=== PATIENT | female | born 1970 | race Caucasian/White ===

== ENCOUNTER → 2022-09-02 15:31 | Outpatient (CLI) | payer OTHER, SELFPAY ==
[2022-09-02 17:38] LABS: Alanine Aminotransferase 23 IU/L (<35); Albumin 4.2 g/dL (3.5-5.0); Albumin Globulin Ratio 1.3 (1.0-2.8); Alkaline Phosphatase 50 U/L (38-126); Aspartate Aminotransferase 21 IU/L (14-36); BUN Creatinine Ratio 18.2 (6-22); Bilirubin Total 0.7 mg/dL (0.2-1.3); Blood Urea Nitrogen 12 mg/dL (7-17); Calcium 9.7 mg/dL (8.4-10.2); Carbon Dioxide 28 mmol/L (22-32); Chloride 101 mmol/L (98-107); Cholesterol 218 mg/dL (140-199); Estimated Glomerular Filt Rate > 60 mL/min (>60); Globulin 3.2 g/dL (1.7-4.1); Glucose 93 mg/dL (70-100); HDL Cholesterol 35 mg/dL (40-60); HEMOLYSIS < 15 (0-50); LDL Cholesterol Calculated 145 mg/dL (<100); Potassium 4.3 mmol/L (3.4-5.1); Sodium 137 mmol/L (137-145); Total Protein 7.4 g/dL (6.3-8.2); Triglycerides 188 mg/dL (35-150)
[2022-09-02 18:04] LABS: TSH w/ Reflex to FT4 0.59 uIU/mL (0.47-4.68)
[2022-09-04 00:58] LABS: x Labcorp Estim. Avg Glu (eAG) 126 mg/dL (.)
== END ==
PROVIDERS: PCP Internal Medicine; Referring Provider Internal Medicine; Visit Provider Internal Medicine
DX: E78.2 Mixed hyperlipidemia (principal); I10 Essential (primary) hypertension; R73.02 Impaired glucose tolerance (oral)
CPT/HCPCS: 36415; 80053; 80061; 83036; 84443

== ENCOUNTER → 2023-08-04 12:39 | Outpatient (CLI) | payer OTHER, SELFPAY ==
--- NOTE | 2023-08-04 | DI.MG.S_ITS ---
BILATERAL DIGITAL SCREENING MAMMOGRAM 3D/2D WITH CAD: 08/04/2023 CLINICAL: Routine screening. Family history of breast cancer. Comparison is made to exam dated: 07/06/2010 mammogram - [facility]. Both breasts are heterogeneously dense, which may obscure small masses (category c / 51-75% glandular tissue). Current study was also evaluated with a Computer Aided Detection (CAD) system. There is a focal asymmetry in the right breast at 2 o'clock middle depth. No other significant masses, calcifications, or other findings are seen in either breast. IMPRESSION: INCOMPLETE: NEEDS ADDITIONAL IMAGING EVALUATION The focal asymmetry in the right breast is indeterminate. Additional views with possible ultrasound are recommended. Based on the Tyrer Cuzick model (a risk assessment model) the patient's lifetime risk is 9.7% and her 10 year risk is 2.6%. According to the ACR, ACS, and NCCN guidelines, an annual breast MRI exam along with mammogram is recommended if the patient's lifetime risk is 20% or greater. This exam was interpreted at Station ID: [id number]. NOTE: For mammograms, a report in lay terms will be sent to the patient. Approximately 15% of breast malignancies will not be visualized mammographically. In the management of a palpable breast mass, a negative mammogram must not discourage biopsy of a clinically suspicious lesion. Electronically Signed By: Cori rai/edwar:08/04/2023 15:03:10 letter sent: Additional Imaging Needed ACR BI-RADS Category 0: Incomplete 3340F
== END ==
LOC: MAMMO 12:40
PROVIDERS: PCP Internal Medicine; Referring Provider Internal Medicine; Visit Provider Internal Medicine
DX: Z12.31 Encounter for screening mammogram for malignant neoplasm of breast (principal); Z80.3 Family history of malignant neoplasm of breast; R92.333 Mammographic heterogeneous density, bilateral breasts
CPT/HCPCS: 77063; 77067

== ENCOUNTER → 2023-08-27 08:59 | Outpatient (CLI) | payer OTHER, SELFPAY ==
--- NOTE | 2023-08-27 09:00 | DI.MG.S_ITS ---
UNILATERAL RIGHT DIGITAL DIAGNOSTIC MAMMOGRAM 3D/2D WITH ADDITIONAL VIEWS: 08/27/2023 CLINICAL: Additional evaluation requested from prior study. Comparison is made to exams dated: 08/04/2023 mammogram - [facility] and 07/06/2010 mammogram - [facility]. The right breast is heterogeneously dense, which may obscure small masses (category c / 51-75% glandular tissue). With focal spot compression, and additional views, the asymmetry in the right breast at 2 o'clock in the middle depth seen on screening mammography resolves. This is probably overlapping fibroglandular tissue. No significant masses, calcifications, or other findings are seen in the breast. IMPRESSION: INCOMPLETE: NEEDS ADDITIONAL IMAGING EVALUATION Resolution of screening mammography abnormality with additional views. Ultrasound evaluation to confirm resolution is recommended and was performed immediately following this exam. Based on the Tyrer Cuzick model (a risk assessment model) the patient's lifetime risk is 9.7% and her 10 year risk is 2.6%. According to the ACR, ACS, and NCCN guidelines, an annual breast MRI exam along with mammogram is recommended if the patient's lifetime risk is 20% or greater. This exam was interpreted at Station ID: [id number]. NOTE: For mammograms, a report in lay terms will be sent to the patient. Approximately 15% of breast malignancies will not be visualized mammographically. In the management of a palpable breast mass, a negative mammogram must not discourage biopsy of a clinically suspicious lesion. Electronically Signed By: Celi gamez/:08/27/2023 09:38:40 ACR BI-RADS Category 0: Incomplete 3340F
--- NOTE | 2023-08-27 09:00 | DI.US.S_ITS ---
LIMITED ULTRASOUND OF RIGHT BREAST: 08/27/2023 CLINICAL: Patient returns today to evaluate a focal asymmetry in the right breast. Comparison is made to exams dated: 08/27/2023 mammogram, 08/04/2023 mammogram - [facility], and 07/06/2010 mammogram - [facility]. Color flow ultrasound of the right breast 1-4 o'clock region was performed. Camara scale images of the real-time examination were reviewed. There is an area of fibrocystic tissue in the right breast at 1 o'clock middle depth containing two probably simple, possible complicated cysts measuring 0.5 cm and 0.6 cm. These show good posterior acoustic enhancement. There is no focal other finding to correlate to the mammographic appearance, which resolves with spot compression. There are numerous scattered related calcifications as seen on mammogram. Color flow imaging demonstrates that there is no vascularity present. IMPRESSION: PROBABLY BENIGN The area of fibrocystic tissue in the right breast containing small cysts may correspond to the mammographic asymmetry, and is probably benign with no suspicious findings. A follow-up right mammogram and an ultrasound in 6 months is recommended to demonstrate stability of tissue appearance both on mammogram and ultrasound. Findings and recommendations were conveyed to the patient at time of exam. This exam was interpreted at Station ID: [id number]. Electronically Signed By: Celi gamez/:08/27/2023 10:10:54 letter sent: Followup Recommended Ultrasound BI-RADS: 3 Probably benign
== END ==
LOC: MAMMO 08:59
PROVIDERS: PCP Internal Medicine; Referring Provider Internal Medicine; Visit Provider Internal Medicine
DX: R92.8 Other abnormal and inconclusive findings on diagnostic imaging of breast (principal); N60.01 Solitary cyst of right breast; R92.331 Mammographic heterogeneous density, right breast
CPT/HCPCS: 76642; 77065; G0279

== ENCOUNTER → 2023-09-23 11:07 | Outpatient (CLI) | payer OTHER, SELFPAY ==
[2023-09-23 12:11] LABS: Hemoglobin A1C% w Est Avg Glu 7.1 % (4.0-6.0)
[2023-09-23 12:39] LABS: Alanine Aminotransferase 23 IU/L (<35); Albumin 4.3 g/dL (3.5-5.0); Albumin Globulin Ratio 1.3 (1.0-2.8); Alkaline Phosphatase 62 U/L (38-126); Aspartate Aminotransferase 25 IU/L (14-36); Bilirubin Total 0.9 mg/dL (0.2-1.3); Blood Urea Nitrogen 12 mg/dL (7-17); Calcium 8.8 mg/dL (8.4-10.2); Carbon Dioxide 27 mmol/L (22-32); Chloride 103 mmol/L (98-107); Cholesterol 208 mg/dL (140-199); Estimated Glomerular Filt Rate > 60 mL/min (>60); Globulin 3.3 g/dL (1.7-4.1); Glucose 134 mg/dL (70-100); HDL Cholesterol 31 mg/dL (40-60); HEMOLYSIS < 15 (0-50); LDL Cholesterol Calculated 147 mg/dL (<100); Potassium 3.7 mmol/L (3.4-5.1); Sodium 137 mmol/L (137-145); Total Protein 7.6 g/dL (6.3-8.2); Triglycerides 151 mg/dL (35-150)
== END ==
PROVIDERS: PCP Internal Medicine; Referring Provider Internal Medicine; Visit Provider Internal Medicine
DX: R73.02 Impaired glucose tolerance (oral) (principal); I10 Essential (primary) hypertension
CPT/HCPCS: 36415; 80053; 80061; 83036

== ENCOUNTER → 2023-10-08 10:35 | Outpatient (CLI) | payer OTHER, SELFPAY ==
[2023-10-09 13:24] LABS: Fecal Immunochemical Test Negative (Negative)
== END ==
LOC: LAB 10:36
PROVIDERS: PCP Internal Medicine; Referring Provider Internal Medicine; Visit Provider Internal Medicine
DX: Z12.11 Encounter for screening for malignant neoplasm of colon (principal)
CPT/HCPCS: 82274

== ENCOUNTER → 2023-11-18 08:52 | Outpatient (CLI) | payer OTHER, SELFPAY ==
--- NOTE | 2023-11-18 09:02 | DIAB.MNT ---
Initial Diabetes Medical Nutrition Therapy Assessment Name: Ronaldo Ambrosio Date: 11/18/23 Time: 10-11a Dx: Type II Diabetes Provider: Crispin Preferred Learning Style: Hands on/doing Ronaldo presents for initial Dm visit today. New diagnosis with HgA1c of 7.1%. FH of DM with mother. Reports social anxiety and would like to stick with 1:1 visits vs classes. If feeling dizzy may drink juice or gatorade or have piece of cheese. States her goal is to not have DM. Today she wants information, wants to know how to control it, has anxiety about this. Her sister is a dietitian in [place].. After review of diet recall, most of CHO come from sugar beverages. Reports diet soda causes migraines. She uses soda as a source of caffeine. Also home makes sweet tea with about 20-40g CHO per serving. Stage of change contemplation for beverage choices. Frequent eating out and processed frozen foods resulting in higher Na intake. Eats dinner at 830p with before he goes to work. Daughter lives with them and cooks. Diet Recall: 9a: frozen frittatas x 2 (7g CHO 670mg Na) + 12oz coke (40g CHO--- total 47g CHO) 2p: taco time beef salad with ranch and small coke (44-60g CHO) sn: nothing or cheese or chips or nuts 830p: black whitt burger britney x2 OR chicken britney with 20-40oz sweetened tea (64-84g CHO) Nohemy: water x 80oz, sweet tea 20-40oz, soda 24oz Anthropometrics: Ht: 66 Wt: 226# 10/2023 at PCP office Physical Activity: No intentional exercise program. Self-Monitoring Blood Glucose: No supplies. Open to checking BG. RD messaged PCP workgroup. Diabetes Medications: None Pertinent Labs: HgA1c: 6.0% 08/2022 7.1% 08/2023 Past Medical History: (Last Updated 09/30/23 @ 10:06 by Orestes Roa MD) Depression (~2020) Diabetes type 2, controlled (~08/2023) A1c 7.1 08/2023 Essential hypertension History of kidney stones Impaired glucose tolerance A1c 6.27 July 2021 Ovarian cyst (~1993) Nutrition Rx: Carbohydrates: Meal:30-45g Snack:15-30g Na: 2000-2300mg/day Nutrition Diagnosis: - Excessive Na intake r/t nutrition knowledge deficit and convenience aeb diet recall of eating out and processed food options - Undesirable food choices r/t stage of change contemplation aeb reported sugar beverage options - Physical inactivity r/t stage of change contemplation aeb reported limited exercise Intervention: This participant was very receptive. Provided appropriate educational handouts. Discussed the following topics: Completed intake assessment. Discussed barriers to care. Pathophysiology of T2DM HgA1c, its correlation to blood glucose numbers, and rationale for goal Importance of self-monitoring, how often, and when to check. Suggested checking at different times to evaluate meals Plate Method, impact of macronutrients on blood sugar, meal timing, carbohydrate counting, pairing macronutrients and spreading out carbohydrates for better blood glucose management Recommended servings for carbohydrates at meals and snacks Heart health nutrition Brainstormed appropriate meal plan based on food preferences Role of physical activity a Discussed low risk for lows given state of DM and DM medications, no need for juice treatment Reviewed impact of sugar beverages on BG Created SMART goals for patient self-care and success. 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
== END ==
PROVIDERS: PCP Internal Medicine; Referring Provider Internal Medicine
DX: E11.9 Type 2 diabetes mellitus without complications (principal); Z71.3 Dietary counseling and surveillance
CPT/HCPCS: 97802

== ENCOUNTER → 2023-12-17 10:01 | Outpatient (CLI) | payer OTHER, SELFPAY ==
--- NOTE | 2024-01-13 16:59 | DIAB.MNTFU ---
Follow-up Diabetes Medical Nutrition Therapy Assessment Name: Ronaldo Ambrosio Date: 12/17/23 Time: 1020-11a Dx: Type II Diabetes Ronaldo presents for Dm visit today. Has reduced soda intake to one per day in the morning. Does not like sf options. Drinking more water at meals. Also, reduced sugar in homemade tea. This results in 13g CHO per day from tea. Looking for some new recipes with veggies. Has questions about carb content in foods, including candy. Has been looking at online menus for carb content in fast food options. Diet Recall: Lunch: taco salad from fast food place Dinner: smaller portions lately, ie veggie burgers and veggies water: 80oz Anthropometrics: Ht: 66 Wt: 226# 10/2023 at PCP office Physical Activity: Walking more after dinner with dog for 15 mins. Use to go to [employer], but limited now due to cost. Walking to get lunch at fast food place. Interested in walking more. Self-Monitoring Blood Glucose: Started checking BG. FBG recently elevated. Some postprandial readings ranging from 110-186mg/dl, one reading of 256 directly after a meal. Would likely benefit from DM medication. Date Pre Post Pre Post Pre Post 12/08 177 130 12/10 110 12/11 144 12/12 173 121 12/14 256 Right after meal 12/15 186 12/16 158 Diabetes Medications: None Pertinent Labs: HgA1c: 6.0% 08/2022 7.1% 08/2023 Past Medical History: (Last Updated 09/30/23 @ 10:06 by Orestes Roa MD) Depression (~2020) Diabetes type 2, controlled (~08/2023) A1c 7.1 08/2023 Essential hypertension History of kidney stones Impaired glucose tolerance A1c 6.27 July 2021 Ovarian cyst (~1993) Nutrition Rx: Carbohydrates: Meal:30-45g Snack:15-30g Na: 2000-2300mg/day Nutrition Diagnosis: - Excessive Na intake r/t nutrition knowledge deficit and convenience aeb diet recall of eating out and processed food options- in progress - Undesirable food choices r/t stage of change contemplation aeb reported sugar beverage options - improved - Physical inactivity r/t stage of change contemplation aeb reported limited exercise - improved Intervention: This participant was very receptive. Provided appropriate educational handouts. Discussed the following topics: Impact of sugar beverages on BG Carb recommendations and reading food labels for net carbs Recipe options with more veggies BG results and goals Created SMART goals for patient self-care and success. 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
== END ==
PROVIDERS: PCP Internal Medicine; Referring Provider Internal Medicine
DX: E11.9 Type 2 diabetes mellitus without complications (principal); Z71.3 Dietary counseling and surveillance
CPT/HCPCS: 97803

== ENCOUNTER → 2024-01-14 09:46 | Outpatient (CLI) | payer OTHER, SELFPAY ==
--- NOTE | 2024-01-14 10:03 | DIAB.MNTFU ---
Follow-up Diabetes Medical Nutrition Therapy Assessment Name: Ronaldo Ambrosio Date: 01/14/24 Time: 1539-9050a Dx: Type II Diabetes Ronaldo presents for Dm visit today. Brought a [employer] box lunch box. Reports she has been using this instead of eating out at the [facility]. Filling the box with mostly protein and veggies and minimal carbohydrates. Brought a fast food menu to review best choices while at work for lunch. Has questions regarding BM regularity. Reports BM 2x per week and often hard, constipation. Likely having constipation r/t reduced fiber with lower carb diet. Cut out whole grains and fruit. Has questions about how much rice and oatmeal she can eat. Also has dried papaya and wondering how much she can have. Added macronutrient paired snack in the evening. Eye doctor next week. Dental up to date. PCP visit in April. Anthropometrics: Ht: 66 Wt: 226# 10/2023 at PCP office Physical Activity: Walking more after dinner with dog for 30 mins. Self-Monitoring Blood Glucose: FBG 140s and later in the day BG often 140-160mg/dl. FBG have improved per report. Last visit FBG ranging in the 150-170s mg/dl. Diabetes Medications: None Pertinent Labs: HgA1c: 6.0% 08/2022 7.1% 08/2023 Past Medical History: (Last Updated 09/30/23 @ 10:06 by Orestes Roa MD) Depression (~2020) Diabetes type 2, controlled (~08/2023) A1c 7.1 08/2023 Essential hypertension History of kidney stones Impaired glucose tolerance A1c 6.27 July 2021 Ovarian cyst (~1993) Nutrition Rx: Carbohydrates: Meal:30-45g Snack:15-30g Na: 2000-2300mg/day Nutrition Diagnosis: - Excessive Na intake r/t nutrition knowledge deficit and convenience aeb diet recall of eating out and processed food options- in progress - Predicted inadequate fiber intake r/t limiting whole grains and fruit to reduce CHO intake aeb pt report and constipation- new - Nutrition and food related knowledge deficit r/t new DM diagnosis and needing more info on carb counting/label reading aeb pt report - new Intervention: This participant was very receptive. Provided appropriate educational handouts. Discussed the following topics: Blood sugar trends review Physical activity progress and plan Yves box portions DM complication risk reduction appts: eye and dental care Ways to add fiber into diet Constipation MNT: fiber, fluids, activity Carb portion recommendations and pairing Label reading Created SMART goals for patient self-care and success. Goals: Increase walking time- met Start trail walks - in progress Check FBG and a few 1-2 hour pc readings- in progress Try Hs snack with protein- met Try 1 pkt oats with added protein- new Add fruit with pro snack at 5p- new Bring nutrition info for papaya next visit- new Follow-up: KIMBERLEE BEDOYA follow-up in 4 weeks Perri Scott RDN, [facility] Certified Diabetes Care and Government Sales Manager P: [phone] Thank you for this referral
== END ==
LOC: DIET 09:46
PROVIDERS: PCP Internal Medicine; Referring Provider Internal Medicine
DX: E11.9 Type 2 diabetes mellitus without complications (principal); Z71.3 Dietary counseling and surveillance
CPT/HCPCS: 97803

== ENCOUNTER → 2024-02-18 09:47 | Outpatient (CLI) | payer OTHER, SELFPAY ==
--- NOTE | 2024-03-12 09:29 | DIAB.MNTFU ---
Follow-up Diabetes Medical Nutrition Therapy Assessment Name: Ronaldo Ambrosio Date: 02/18/24 Time: 101030a Dx: Type II Diabetes Ronaldo presents for Dm visit today. Recent return from [place]ilting retreat. Reports focusing mostly on salads and sausage egg bowls without CHO. Recently bought fruit cups in juice for a snack. Overall, choosing low CHO options, ie low CHO tortillas. Occasionally will have <1oz dried papaya when craving something sweet, <24g per serving. Eye doctor completed without concern. Dental up to date and due in March PCP visit in April. Anthropometrics: Ht: 66 Wt: 226# 10/2023 at PCP office Physical Activity: Walking more after dinner with dog for 30 mins. Trying to get her small dog to walk more than 30 minutes. Self-Monitoring Blood Glucose: FBG 140-150 and later in the day BG often 140-150mg/dl. FBG have improved since our first visit, however have been about the same since last visit. Reports an occasional 200mg/dl after low CHO breakfast sandwich and sweetened soda. Quincy dizzy and coworker encouraged her to stay seated. Diabetes Medications: None Pertinent Labs: HgA1c: 6.0% 08/2022 7.1% 08/2023 Past Medical History: (Last Updated 09/30/23 @ 10:06 by Orestes Roa MD) Depression (~2020) Diabetes type 2, controlled (~08/2023) A1c 7.1 08/2023 Essential hypertension History of kidney stones Impaired glucose tolerance A1c 6.27 July 2021 Ovarian cyst (~1993) Nutrition Rx: Carbohydrates: Meal:30-45g Snack:15-30g Na: 2000-2300mg/day Nutrition Diagnosis: - Excessive Na intake r/t nutrition knowledge deficit and convenience aeb diet recall of eating out and processed food options- in progress - Predicted inadequate fiber intake r/t limiting whole grains and fruit to reduce CHO intake aeb pt report and constipation- improved - Nutrition and food related knowledge deficit r/t new DM diagnosis and needing more info on carb counting/label reading aeb pt report - improved -Excessive CHO intake r/t 1 sweetened beverage per day aeb pt report of soda and BG of >200mgd/l- new Intervention: This participant was very receptive. Provided appropriate educational handouts. Discussed the following topics: Blood sugar trends review Physical activity progress and plan Impact of sugared beverages on BG what to do if BG is elevated: hydrate and move your body Review of risk reduction recommendations for avoiding complications Created SMART goals for patient self-care and success. Goals: Try 1 pkt oats with added protein- met Add fruit with pro snack at 5p- met Bring nutrition info for papaya next visit- not met Check for smaller soda can- new If experiencing high BG, drink water and move- new Follow-up: KIMBERLEE BEDOYA follow-up in 3-4 weeks Perri Scott RDN, [facility] Certified Diabetes Care and Rad Tech P: [phone] Thank you for this referral
== END ==
PROVIDERS: PCP Internal Medicine; Referring Provider Internal Medicine
DX: E11.9 Type 2 diabetes mellitus without complications (principal); Z71.3 Dietary counseling and surveillance
CPT/HCPCS: 97803

== ENCOUNTER → 2024-03-17 08:49 | Outpatient (CLI) | payer OTHER, SELFPAY ==
--- NOTE | 2024-03-17 09:48 | DIAB.MNTFU ---
Follow-up Diabetes Medical Nutrition Therapy Assessment Name: Ronaldo Ambrosio Date: 03/17/24 Time: 9-930a Dx: Type II Diabetes Ronaldo presents for Dm visit today. Recent return from [place] trip for a friend's wedding anniversary. States she has had a horrible months due to eating indiscretions while on this trip, ie increased sandwiches, saturated fats. Seems to be pretty hard on herself for short duration of celebratory trip/eating. Found smaller cans of soda she was willing to try out. still having 12 oz cans of regular soda at home, but switching to q other day vs daily. Drinking these with low CHO meals. Endorses increased water intake. No recent dizzy spells with higher CHO intake. Did have some tingling, indigestion, heartburn one night, but BP and BG was WNL at that time per report. Has questions about eating out. Has questions about potato portions. Eye doctor completed without concern. Dental up to date and due in March PCP visit in April. Anthropometrics: Ht: 66 Wt: 226# 10/2023 at PCP office Physical Activity: Walking after dinner with dog for 30 mins. Trying to get her small dog to walk more than 30 minutes. Cold weather may be a barrier eventually, but currently able to continue walking. Reports concerns with small dog willingness to walk in snow or heavy rain. Self-Monitoring Blood Glucose: FBG 140-150 last visit, reports improved BG closer to 140mg/dl. Diabetes Medications: None Pertinent Labs: HgA1c: 6.0% 08/2022 7.1% 08/2023 Past Medical History: (Last Updated 09/30/23 @ 10:06 by Orestes Roa MD) Depression (~2020) Diabetes type 2, controlled (~08/2023) A1c 7.1 08/2023 Essential hypertension History of kidney stones Impaired glucose tolerance A1c 6.27 July 2021 Ovarian cyst (~1993) Nutrition Rx: Carbohydrates: Meal:30-45g Snack:15-30g Na: 2000-2300mg/day Nutrition Diagnosis: - Nutrition and food related knowledge deficit r/t new DM diagnosis and needing more info on carb counting/label reading aeb pt report - improved/in progress -Excessive CHO intake r/t 1 sweetened beverage per day aeb pt report of soda and BG of >200mgd/l- improved Intervention: This participant was very receptive. Provided appropriate educational handouts. Discussed the following topics: Blood sugar trends review Physical activity progress and plan Reducing sugar beverage intake Eating out strategies and portions Potato portions and carb content Practicing moderation and george when getting off track with nutrition goals Created SMART goals for patient self-care and success. Goals: Check for smaller soda can- met If experiencing high BG, drink water and move- continue Practice george with occasional pitfalls of nutrition changes- new Continue walking - new Continue working toward 8oz sodas q other day- new Estimate how much rice is in the [place]- new Follow-up: KIMBERLEE BEDOYA follow-up in 4 weeks. Would like to continue to meet monthly at this time. Plans to see Dentist next month, and PCP in early April. Perri Scott RDN, [facility] Certified Diabetes Care and Crook Operator P: [phone] Thank you for this referral
== END ==
PROVIDERS: PCP Internal Medicine; Referring Provider Internal Medicine
DX: E11.9 Type 2 diabetes mellitus without complications (principal); Z71.3 Dietary counseling and surveillance
CPT/HCPCS: 97803

== ENCOUNTER → 2024-04-14 09:42 | Outpatient (CLI) | payer OTHER, SELFPAY ==
--- NOTE | 2024-04-14 10:04 | DIAB.MNTFU ---
Follow-up Diabetes Medical Nutrition Therapy Assessment Name: Ronaldo Ambrosio Date: 04/14/24 Time: 100a Dx: Type II Diabetes Ronaldo presents for Dm visit today. Trying plant based pastas about 30g CHO per serving with protein. Practicing george with any nutrition pitfalls. Though states she is doing very well with eating in general. States she has one cheat day that includes jelly donut for breakfast. Otherwise, portioning out sweets. Recent cold, but she is feeling better now. Reports a cheat day q Friday: donut, two sodas, and chips. Meals the same. Some concern for CHO intake on this day, especially refined CHO. Eye doctor completed without concern. Dental was due in March, r/s due to illness PCP visit in April. Anthropometrics: Ht: 66 Wt: 226# 10/2023 at PCP office Physical Activity: Walking after dinner with dog for 30 mins. Trying to get her small dog to walk more than 30 minutes. Cold weather becoming more of a barrier. Use to have a [employer] membership, unclear if still active. Self-Monitoring Blood Glucose: FBG closer to 140mg/dl. Diabetes Medications: None Pertinent Labs: HgA1c: 6.0% 08/2022 7.1% 08/2023 Past Medical History: (Last Updated 09/30/23 @ 10:06 by Orestes Roa MD) Depression (~2020) Diabetes type 2, controlled (~08/2023) A1c 7.1 08/2023 Essential hypertension History of kidney stones Impaired glucose tolerance A1c 6.27 July 2021 Ovarian cyst (~1993) Nutrition Rx: Carbohydrates: Meal:30-45g Snack:15-30g Na: 2000-2300mg/day Nutrition Diagnosis: - Nutrition and food related knowledge deficit r/t new DM diagnosis and needing more info on carb counting/label reading aeb pt report - improved/in progress -Excessive CHO intake r/t 2 sweetened beverage on Sundays along with other higher CHO options aeb pt report - new Intervention: This participant was very receptive. Provided appropriate educational handouts. Discussed the following topics: Physical activity plan Reducing sugar beverage intake Cheat day moderation Created SMART goals for patient self-care and success. Goals: Practice george with occasional pitfalls of nutrition changes- met Continue walking - met Continue working toward 8oz sodas q other day- met Estimate how much rice is in the [place]- met Keep soda to one on cheat day- new Check into [place] membership status- new Follow-up: KIMBERLEE BEDOYA follow-up in 4-6 weeks. She would like to continue to meet monthly at this time. Plans to r/s dentist and PCP in early April. Perri Scott RDN, [facility] Certified Diabetes Care and Test And Turn Up Technician P: [phone] Thank you for this referral
== END ==
PROVIDERS: PCP Internal Medicine; Referring Provider Internal Medicine
DX: E11.9 Type 2 diabetes mellitus without complications (principal); Z71.3 Dietary counseling and surveillance
CPT/HCPCS: 97803

== ENCOUNTER → 2024-04-20 11:05 | Outpatient (CLI) | payer OTHER, SELFPAY ==
[2024-04-20 13:07] LABS: Alanine Aminotransferase 29 IU/L (<35); Albumin 4.1 g/dL (3.5-5.0); Albumin Globulin Ratio 1.3 (1.0-2.8); Alkaline Phosphatase 69 U/L (38-126); Aspartate Aminotransferase 30 IU/L (14-36); BUN Creatinine Ratio 16.4 (6-22); Bilirubin Total 0.8 mg/dL (0.2-1.3); Blood Urea Nitrogen 11 mg/dL (7-17); Calcium 9.4 mg/dL (8.4-10.2); Carbon Dioxide 27 mmol/L (22-32); Chloride 103 mmol/L (98-107); Cholesterol 235 mg/dL (140-199); Estimated Glomerular Filt Rate > 60 mL/min (>60); Globulin 3.1 g/dL (1.7-4.1); Glucose 134 mg/dL (70-100); HDL Cholesterol 36 mg/dL (40-60); HEMOLYSIS < 15 (0-50); Hemoglobin A1C% w Est Avg Glu 6.8 % (4.0-6.0); LDL Cholesterol Calculated 176 mg/dL (<100); Potassium 4.3 mmol/L (3.4-5.1); Sodium 138 mmol/L (137-145); Total Protein 7.2 g/dL (6.3-8.2); Triglycerides 116 mg/dL (35-150)
[2024-04-20 14:14] LABS: Creatinine Urine Random 100.25 mg/dL
[2024-04-20 14:22] LABS: Microalbumin Urine Random 1.4 mg/dL (0-1.6)
== END ==
PROVIDERS: PCP Internal Medicine; Referring Provider Internal Medicine; Visit Provider Internal Medicine
DX: E11.9 Type 2 diabetes mellitus without complications (principal); I10 Essential (primary) hypertension
CPT/HCPCS: 36415; 80053; 80061; 82043; 82570; 83036

== ENCOUNTER → 2024-05-12 09:46 | Outpatient (CLI) | payer OTHER, SELFPAY ==
--- NOTE | 2024-05-12 | DI.MG.S_ITS ---
UNILATERAL RIGHT DIGITAL DIAGNOSTIC MAMMOGRAM 3D/2D SHORT-TERM FOLLOW-UP: 05/12/2024 CLINICAL: Patient returns for a 6 month follow up of the right breast. Comparison is made to exams dated: 08/27/2023 mammogram, 08/04/2023 mammogram - [facility], and 07/06/2010 mammogram - [facility]. The breasts are heterogeneously dense, which may obscure small masses (category c / 51-75% glandular tissue). The previously described asymmetry in the inner breast at middle depth is less prominent since prior mammogram. No other significant masses, calcifications, or other findings are seen in the breast. IMPRESSION: INCOMPLETE: NEED ADDITIONAL IMAGING EVALUATION Right breast asymmetry in the middle inner region, less prominent since August 2023. An ultrasound is recommended for further evaluation and is scheduled to immediately follow this examination. Based on the Tyrer Cuzick model (a risk assessment model) the patient's lifetime risk is 9.6% and her 10 year risk is 2.8%. According to the ACR, ACS, and NCCN guidelines, an annual breast MRI exam along with mammogram is recommended if the patient's lifetime risk is 20% or greater. This exam was interpreted at Station ID: [id number]. NOTE: For mammograms, a report in lay terms will be sent to the patient. Approximately 15% of breast malignancies will not be visualized mammographically. In the management of a palpable breast mass, a negative mammogram must not discourage biopsy of a clinically suspicious lesion. Electronically Signed By: Rayna Wells M.D., Ph.D. eb/:05/13/2024 02:41:04 letter sent: Additional Imaging Needed ACR BI-RADS Category 0: Incomplete: Need Additional Imaging Evaluation
--- NOTE | 2024-05-12 09:47 | DI.US.S_ITS ---
LIMITED ULTRASOUND OF RIGHT BREAST: 05/12/2024 CLINICAL: 6 month follow-up of cysts. Comparison is made to exams dated: 05/12/2024 mammogram, 08/27/2023 ultrasound, 08/27/2023 mammogram, 08/04/2023 mammogram - [facility], and 07/06/2010 mammogram - [facility]. Color flow ultrasound of the right breast 1 o'clock region was performed. Camara scale images of the real-time examination were reviewed. There is a benign 0.5 cm cyst in the right breast at 1 o'clock, 5 cm from the nipple. This abnormality is decreased in size and correlates with mammography findings. IMPRESSION: BENIGN Right breast 0.5 cm cyst at 1 o'clock is benign. No mammographic or sonographic evidence of malignancy. Return to annual mammogram screening schedule is recommended, due in July 2024. Findings and recommendations were conveyed to the patient during today's evaluation. This exam was interpreted at Station ID: [id number]. Electronically Signed By: Rayna Wells M.D., Ph.D. eb/:05/13/2024 02:44:08 letter sent: Normal Exam ACR BI-RADS Category 2: Benign
== END ==
PROVIDERS: PCP Internal Medicine; Referring Provider Internal Medicine; Visit Provider Internal Medicine
DX: R92.8 Other abnormal and inconclusive findings on diagnostic imaging of breast (principal); R92.333 Mammographic heterogeneous density, bilateral breasts; N60.01 Solitary cyst of right breast
CPT/HCPCS: 76642; 77065; G0279

== ENCOUNTER → 2024-05-12 12:42 | Outpatient (CLI) | payer OTHER, SELFPAY ==
--- NOTE | 2024-06-11 13:33 | DIAB.MNTFU ---
Follow-up Diabetes Medical Nutrition Therapy Assessment Name: Ronaldo Ambrosio Date: 05/12/24 Time: 1-130p Dx: Type II Diabetes Ronaldo presents for Dm visit today. Great hgA1c in Nov under 7%, though some elevated LDL. Some h/o elevated cholesterol, and has increased from 147 to 176 for LDL. TG down from 151 to 116. Prescribed a statin as a result of elevated LDL. States she will try this for a few weeks, however feels her recent SE include irritability, emotional. Wants to know what she can do with her diet to reduce LDL. Endorses upset GI with gluten. Takes fiber supplement Questions regarding rosemarieie she buys with protein, 50g CHO, 30g PRO. Anthropometrics: Ht: 66 Wt: 226# 10/2023 at PCP office Physical Activity: Walking after dinner with dog for 30 mins. Trying to get her small dog to walk more than 30 minutes. Cold weather becoming more of a barrier. Use to have a [employer] membership. Interested in a bike. Will discuss more next visit Self-Monitoring Blood Glucose: Not discussed today. Diabetes Medications: None Pertinent Labs: HgA1c: 6.0% 08/2022 7.1% 08/2023 6.8% 03/2024 Past Medical History: (Last Updated 09/30/23 @ 10:06 by Orestes Roa MD) Depression (~2020) Diabetes type 2, controlled (~08/2023) A1c 7.1 08/2023 Essential hypertension History of kidney stones Impaired glucose tolerance A1c 6.27 July 2021 Ovarian cyst (~1993) Nutrition Rx: Carbohydrates: Meal:30-45g Snack:15-30g Na: 2000-2300mg/day Nutrition Diagnosis: - Nutrition and food related knowledge deficit r/t new DM diagnosis and needing more info on carb counting/label reading aeb pt report - improved/in progress -Excessive CHO intake r/t 2 sweetened beverage on Sundays along with other higher CHO options aeb pt report - improved - Nutrition and food related knowledge deficit r/t needing more info on LDL nutrition recs aeb pt report - new Intervention: This participant was very receptive. Provided appropriate educational handouts. Discussed the following topics: Cholesterol MNT: fiber, fats Exercise impact on cholesterol HLD etiology diet and liver's role Industry 3 sources Recent labs review Created SMART goals for patient self-care and success. Goals: Keep soda to one on cheat day- met Check into [employer] membership status- in progress Fish 2x per week- new Try dave seed pudding- new Consider next step in physical activity - new Follow-up: KIMBERLEE BEDOYA follow-up in 4-6 weeks Perri Scott RDN, AURELIANO Certified Diabetes Care and Marketing Writer P: [phone] Thank you for this referral
== END ==
PROVIDERS: PCP Internal Medicine; Referring Provider Internal Medicine
DX: E11.9 Type 2 diabetes mellitus without complications (principal); Z71.3 Dietary counseling and surveillance
CPT/HCPCS: 97803

== ENCOUNTER → 2024-06-16 09:43 | Outpatient (CLI) | payer OTHER, SELFPAY ==
--- NOTE | 2024-07-08 08:08 | DIAB.MNTFU ---
Follow-up Diabetes Medical Nutrition Therapy Assessment Name: Ronaldo Ambrosio Date: 06/16/24 Time: [id number] Dx: Type II Diabetes Ronaldo presents for Dm visit today. Trying to increase fiber intake. Did not like dave pudding, but is adding it to her yogurt. Has questions about nutrition supplements. Taking statin as rx'd without any SE. Eating Fish 2x per week. Continues to restrict soda intake, though does have small soda sometimes. Reports stress management difficulties. States she usually sews to help with stress, but is unable to do this recently due to living room overcrowded with sewing materials. Would like to turn her daughter's bedroom into a sewing room; however this is emotional as daughter moved to [place] and does not talk to her. Also, having stress with caring for her aging mother. Tearful today. Anthropometrics: Ht: 66 Wt: 226# 10/2023 at PCP office Physical Activity: None lately, looked in to bikes. Self-Monitoring Blood Glucose: Not discussed today. Diabetes Medications: None Pertinent Labs: HgA1c: 6.0% 08/2022 7.1% 08/2023 6.8% 03/2024 Past Medical History: (Last Updated 09/30/23 @ 10:06 by Orestes Roa MD) Depression (~2020) Diabetes type 2, controlled (~08/2023) A1c 7.1 08/2023 Essential hypertension History of kidney stones Impaired glucose tolerance A1c 6.27 July 2021 Ovarian cyst (~1993) Nutrition Rx: Carbohydrates: Meal:30-45g Snack:15-30g Na: 2000-2300mg/day Nutrition Diagnosis: - Nutrition and food related knowledge deficit r/t needing more info on LDL nutrition recs aeb pt report - improved - Physical inactivity r/t weather and stage of change aeb pt report - new Intervention: This participant was very receptive. Provided appropriate educational handouts. Discussed the following topics: Physical activity benefits and strategies Stress management and potential strategies to help her enjoy sewing at home again Impact of stress on eating and DM management Created SMART goals for patient self-care and success. Goals: Fish 2x per week- met Try dave seed pudding- met Consider next step in physical activity - in progress Think about indoor activity- new Organize an area to sew- new Call resources to help with mom- new Follow-up: [facility] follow-up in 3-4 weeks Perri Scott RDN, AURELIANO Certified Diabetes Care and Dye Blender P: [phone] Thank you for this referral
== END ==
PROVIDERS: PCP Internal Medicine; Referring Provider Internal Medicine
DX: E11.9 Type 2 diabetes mellitus without complications (principal); Z71.3 Dietary counseling and surveillance
CPT/HCPCS: 97803

== ENCOUNTER → 2024-07-21 09:44 | Outpatient (CLI) | payer OTHER, SELFPAY ==
--- NOTE | 2024-07-21 10:04 | DIAB.MNTFU ---
Follow-up Diabetes Medical Nutrition Therapy Assessment Name: Ronaldo Ambrosio Date: 07/21/24 Time: [id number] Dx: Type II Diabetes Ronaldo presents for Dm visit today. Reports struggling with some depression, focusing on taking care of myself and getting to work Reports stress continued with mother care situation, has a helper that will not be able to continue helping. Ronaldo has been working many days and not able to call potential support for this. Has questions about GLP1. States her mother's tenant relations coordinator suggested this for both her mother and her. States she often does not eat TID. May not be a great candidate for GLP1 given appetite is already reportedly suppressed. Wants to lose wt. H/o PCOS and difficulty with wt loss. Open to keeping a food journal. Mindful of carb portions. Taking lunch to work now, sandwich, instead of eating fast food. Been sewing on dining table for stress management Sometimes stomach is upset, she wonders if BG have anything to do with this. Anthropometrics: Ht: 66 Wt: 226# 10/2023 at PCP office Personal goal; 175 reported. Physical Activity: None lately. Considering chair yoga but online program was expensive. Looked into [employer], also costly. Self-Monitoring Blood Glucose: Inconsistent. Checked randomly at work, 202mg/dl after eating. In clinic after cheese sticks, 177mg/dl. Diabetes Medications: None Pertinent Labs: HgA1c: 6.0% 08/2022 7.1% 08/2023 6.8% 03/2024 Past Medical History: (Last Updated 09/30/23 @ 10:06 by Orestes Roa MD) Depression (~2020) Diabetes type 2, controlled (~08/2023) A1c 7.1 08/2023 Essential hypertension History of kidney stones Impaired glucose tolerance A1c 6.27 July 2021 Ovarian cyst (~1993) Nutrition Rx: Carbohydrates: Meal:30-45g Snack:15-30g Na: 2000-2300mg/day Nutrition Diagnosis: - Physical inactivity r/t weather and stage of change aeb pt report - in progress Intervention: This participant was very receptive. Provided appropriate educational handouts. Discussed the following topics: Resources for free online physical activity options Wt management strategies GLP1 benefits, SE, indications BG checks rec Physical activity Stress management Created SMART goals for patient self-care and success. Goals: Think about indoor activity- met Organize an area to sew- met Call resources to help with mom- in progress Check out sit and be fit on youtube- new Keep a food journal- new Check FBG and/or when feeling unwell- new Follow-up: KIMBERLEE BEDOYA follow-up in 3-4 weeks Perri Scott RDN, AURELIANO Certified Diabetes Care and Lingo Cleaner P: [phone] Thank you for this referral
== END ==
PROVIDERS: PCP Internal Medicine; Referring Provider Internal Medicine
DX: E11.9 Type 2 diabetes mellitus without complications (principal); F32.A Depression, unspecified; Z71.3 Dietary counseling and surveillance
CPT/HCPCS: 97803

== ENCOUNTER → 2024-08-18 12:19 | Outpatient (CLI) | payer OTHER, SELFPAY ==
--- NOTE | 2024-09-03 14:42 | DIAB.MNTFU ---
Follow-up Diabetes Medical Nutrition Therapy Assessment Name: Ronaldo Ambrosio Date: 08/18/24 Time: 1-140p Dx: Type II Diabetes Ronaldo presents for Dm visit today. Reports recent stress at home with passing of her mother in law. Still looking for help for her mother. 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 Taking her statin daily. D/c eating out Samoan food lately. Eating more home prepped foods. Diet recall: 830: protein shake 11a: cheese 2p: sandwich on rye with avocado and protein, small apple, cheese sticks x2, cottage cheese with peaches 830p: tuna 3x per week OR corn bread muffin with homemade chili x 1c HS nothing or cheese wants to try packing snacks for 11a and 5p consistently. having [place]ian yogurt with granola and dave, sometimes dried fruit Physical Activity: None lately. Considering chair yoga but online program was expensive. Looked into [employer], also costly. Anthropometrics: Ht: 66 Wt: 226# 10/2023 at PCP office Personal goal; 175 reported. Self-Monitoring Blood Glucose: Noticed higher BG when not drinking enough water or having higher CHO intake. Symptoms of dizziness and foggy brain with BG in the 200s. Diabetes Medications: None Pertinent Labs: HgA1c: 6.0% 08/2022 7.1% 08/2023 6.8% 03/2024 Past Medical History: (Last Updated 09/30/23 @ 10:06 by Orestes Roa MD) Depression (~2020) Diabetes type 2, controlled (~08/2023) A1c 7.1 08/2023 Essential hypertension History of kidney stones Impaired glucose tolerance A1c 6.27 July 2021 Ovarian cyst (~1993) Nutrition Rx: Carbohydrates: Meal:30-45g Snack:15-30g Na: 2000-2300mg/day Nutrition Diagnosis: - Physical inactivity r/t weather and stage of change aeb pt report - in progress - Excessive CHO intake r/t nutrition knowledge deficit and long period of fasting in afternoon aeb diet recall - new Intervention: This participant was very receptive. Provided appropriate educational handouts. Discussed the following topics: Stress management Carb portions Macro pairing Physical activity Lunch and snack ideas Created SMART goals for patient self-care and success. Goals: Check out sit and be fit on youtube- in progress Keep a food journal- in progress Check FBG and/or when feeling unwell- in progress Pair dried fruit with nuts- new Check FBG and/or HS- new Check out sit and be fit - conintue try sandwich and one fruit at lunch - new Follow-up: KIMBERLEE BEDOYA follow-up in 3-4 weeks Perri Scott RDN, AURELIANO Certified Diabetes Care and Rotor Winder P: [phone] Thank you for this referral
== END ==
LOC: DIET 12:20
PROVIDERS: PCP Internal Medicine; Referring Provider Internal Medicine
DX: E11.9 Type 2 diabetes mellitus without complications (principal); Z71.3 Dietary counseling and surveillance
CPT/HCPCS: 97803

== ENCOUNTER → 2024-09-21 09:49 | Outpatient (CLI) | payer OTHER, SELFPAY ==
--- NOTE | 2024-09-21 10:34 | DIAB.MNTFU ---
Addendum entered by Perri Scott 09/21/24 17:26: Also discussed supplements this visit. Reviewed limited data and regulation. Did review what info was available in terms of medication interaction. Original Note: Follow-up Diabetes Medical Nutrition Therapy Assessment Name: Ronaldo Ambrosio Date: 09/21/24 Time: Dx: Type II Diabetes Ronaldo presents for Dm visit today. Reports recent stress reduced some since last visit. Has stress with not wanting to let anyone down at work or in personal life. Feels supplements help with stress, states tried a medication via PCP that had too many side effects. She asked about a supplement, L-threonine, for sleep and stress. upon review, does not seem to have evidence to manage this. She is mainly interested in whether there are medication interactions. Notices more consistent BG readings per report on work days with regimented eating. Endorses some Diet recall: 830: protein shake 2p: sandwich on rye with avocado, cheese sticks x2, cottage cheese with peaches 5p: apple 830p: unreported HS nothing or cheese having [place] Citizen yogurt with granola and dave. Reduced dried fruit intake. Eating more nuts. Having some sugar cravings after lunch or dinner on days off. After dinner with sometime satisfy this craving with venezuelan yogurt. Less BG in the 200s per report. Highest at 190mg/dl. Notices changes in BG with menses. Physical Activity: walking 3 days per week x 1 hour Anthropometrics: Ht: 66 Wt: 226# 10/2023 at PCP office Personal goal; 175 reported. Self-Monitoring Blood Glucose: None for review. Checking FBG and HS. oftne 140-150s. Diabetes Medications: None Pertinent Labs: HgA1c: 6.0% 08/2022 7.1% 08/2023 6.8% 03/2024 Past Medical History: (Last Updated 09/30/23 @ 10:06 by Orestes Roa MD) Depression (~2020) Diabetes type 2, controlled (~08/2023) A1c 7.1 08/2023 Essential hypertension History of kidney stones Impaired glucose tolerance A1c 6.27 July 2021 Ovarian cyst (~1993) Nutrition Rx: Carbohydrates: Meal:30-45g Snack:15-30g Na: 2000-2300mg/day Nutrition Diagnosis: - Physical inactivity r/t weather and stage of change aeb pt report - improved - Improved meal timing r/t added afternoon snack aeb diet recall Intervention: This participant was very receptive. Provided appropriate educational handouts. Discussed the following topics: Stress Cravings and boredom Crab portions Physical activity Created SMART goals for patient self-care and success. Goals: Pair dried fruit with nuts- d/c Check FBG and/or HS- met Check out sit and be fit - d/c try sandwich and one fruit at lunch - met Explore etiology of afternoon cravings (ie BG? Boredom? Thirst?)- new Follow-up: KIMBERLEE BEDOYA follow-up in 4-6 weeks Perri Scott RDN, AURELIANO Certified Diabetes Care and Furniture Mover Driver P: [phone] Thank you for this referral
== END ==
LOC: DIET 09:49
PROVIDERS: PCP Internal Medicine; Referring Provider Internal Medicine
DX: E11.9 Type 2 diabetes mellitus without complications (principal); Z71.3 Dietary counseling and surveillance
CPT/HCPCS: 97803

== ENCOUNTER → 2024-10-20 10:49 | Outpatient (CLI) | payer OTHER, SELFPAY ==
--- NOTE | 2024-10-20 10:55 | DIAB.MNTFU ---
Follow-up Diabetes Medical Nutrition Therapy Assessment Name: Ronaldo Ambrosio Date: 10/20/24 Time: a Dx: Type II Diabetes Ronaldo presents for Dm visit today. Reports easier time with diet and BG on work days d/t consistent schedule. More of a challenge on days off at home. Reports increased sugar beverages on these days. Up from 8oz soda to 20-24oz on these days. Reports it is mostly out of convenience. On work days drinks slightly sweetened tea and/or flavored water. Noticing cravings in the evening are from boredom. Has been trying to stay busy in the evening to avoid eating when not hungry. Has been choosing nuts as a snack more often. Keeping to one serving. Taking first week off in October to be with visiting sisters and her mother and sis that live here. States this is somewhat stressful. Also has a friend injured and hospitalized right now. Coping by trying to stay positive at this time. Endorses likelihood of more eating out wth family in town in October. Usually chooses more veggies and takes half portions home. Last Diet recall: 830: protein shake 2p: sandwich on rye with avocado, cheese sticks x2, cottage cheese with peaches 5p: apple 830p: dinner HS nothing or cheese Days off: 9-10a: irish muffin with egg and turkey with cheese sn: donut 1-4p: leftovers with 8oz soda sn: up to 16oz more soda 830p: Dinner Physical Activity: Not currently walking 3 days per week. Plans [place] hiking [place] friend. Measured about 5000 steps per work day. Anthropometrics: Ht: 66 Wt: 229# 04/2024 PCP office 226# 10/2023 at PCP office Personal goal; 175 reported. Self-Monitoring Blood Glucose: None for review. Checking FBG and HS. often 130-140. Down from last visit of 140-150s Diabetes Medications: None Pertinent Labs: HgA1c: 6.0% 08/2022 7.1% 08/2023 6.8% 03/2024 Past Medical History: (Last Updated 09/30/23 @ 10:06 by Orestes Roa MD) Depression (~2020) Diabetes type 2, controlled (~08/2023) A1c 7.1 08/2023 Essential hypertension History of kidney stones Impaired glucose tolerance A1c 6.27 July 2021 Ovarian cyst (~1993) Nutrition Rx: Carbohydrates: Meal:30-45g Snack:15-30g Na: 2000-2300mg/day Nutrition Diagnosis: - Physical inactivity r/t stage of change aeb pt report - Excessive CHO intake r/t convenience on days off of drinking soda aeb pt report - new Intervention: This participant was very receptive. Provided appropriate educational handouts. Discussed the following topics: BG peak r/t CHO intake Impact of sugar beverages on BG Stress management Meal/snack timing Physical activity Created SMART goals for patient self-care and success. Goals: Explore etiology of afternoon cravings (ie BG? Boredom? Thirst?)- met Check BG 1-2 hours pc lunch on days off- new Limit pop to 1 per day - new Drink more water on days off- new Start walking- new Follow-up: KIMBERLEE BEDOYA follow-up in 4-6 weeks Perri Scott RDN, AURELIANO Certified Diabetes Care and Manager Heart Failure P: [phone] Thank you for this referral
== END ==
PROVIDERS: PCP Internal Medicine; Referring Provider Internal Medicine
DX: E11.9 Type 2 diabetes mellitus without complications (principal); Z71.3 Dietary counseling and surveillance
CPT/HCPCS: 97803

== ENCOUNTER → 2024-10-26 09:04 | Outpatient (CLI) | payer OTHER, SELFPAY ==
[2024-10-26 10:13] LABS: Hemoglobin A1C% w Est Avg Glu 7.1 % (4.0-6.0)
[2024-10-26 10:30] LABS: Alanine Aminotransferase 37 IU/L (<35); Albumin 4.3 g/dL (3.5-5.0); Albumin Globulin Ratio 1.5 (1.0-2.8); Alkaline Phosphatase 69 U/L (38-126); Aspartate Aminotransferase 34 IU/L (14-36); Bilirubin Total 0.8 mg/dL (0.2-1.3); Blood Urea Nitrogen 12 mg/dL (7-17); Calcium 9.6 mg/dL (8.4-10.2); Carbon Dioxide 26 mmol/L (22-32); Chloride 102 mmol/L (98-107); Cholesterol 162 mg/dL (140-199); Estimated Glomerular Filt Rate > 60 mL/min (>60); Globulin 2.9 g/dL (1.7-4.1); Glucose 203 mg/dL (70-99); HDL Cholesterol 41 mg/dL (40-60); HEMOLYSIS < 15 (0-50); LDL Cholesterol Calculated 94 mg/dL (<100); Potassium 4.3 mmol/L (3.4-5.1); Sodium 137 mmol/L (137-145); Total Protein 7.2 g/dL (6.3-8.2); Triglycerides 133 mg/dL (35-150)
== END ==
LOC: LAB 09:06
PROVIDERS: PCP Internal Medicine; Referring Provider Internal Medicine; Visit Provider Internal Medicine
DX: E78.2 Mixed hyperlipidemia (principal); I10 Essential (primary) hypertension; E11.9 Type 2 diabetes mellitus without complications
CPT/HCPCS: 36415; 80053; 80061; 83036

== ENCOUNTER → 2024-11-16 09:47 | Outpatient (CLI) | payer OTHER, SELFPAY ==
--- NOTE | 2024-11-16 10:01 | DIAB.MNTFU ---
Follow-up Diabetes Medical Nutrition Therapy Assessment Name: Ronaldo Ambrosio Date: 11/16/24 Time: 10a Dx: Type II Diabetes Ronaldo presents for Dm visit today. Recent hgA1c up from 6.8% to 7.1%. Her personal goal reported to avoid Dm meds. has questions about PCOS. Was dx with PCOS in . Drinking a higher sugar Aloe beverage lately, 51g CHO per bottle. Also drinking a pomegranate tea, 17g CHO per bottle. Limiting sweetened soda now to 8oz per day. Eating dave seeds 1x per week or more in yogurt Lipids improved. No HS snack recently, which she thinks has contributed to her elevated FBG. Last PCP note indicates loss of sensation her in feet. Pt endorses filament testing, but denies any noticeable loss of sensation. Going to car wash attendant automatic due to pain in Achilles tendon. Encouraged her to discuss foot sensation more in that visit. States she goes barefoot most days. has slippers though. Diet recall: 830: protein shake 11a; nothing OR cheese OR cottage cheese and fruit 2p: sandwich on rye with avocado, cheese sticks x2, cottage cheese with peaches 5-630pp: apple 830p: tuna melt on eng muffin OR gyro OR veggie/chx burger +/- veggies HS nothing water sweetened beverages: soda, slightly sweetened tea homemade, water, pom tea lately, aloe drink lately Physical Activity: None. Achilles pain is a barrier. Anthropometrics: Ht: 66 Wt: 225.9# 10/2024 PCP office 229# 04/2024 PCP office 226# 10/2023 at PCP office Personal goal; 175 reported. Self-Monitoring Blood Glucose: None for review. Checking FBG and a few pc lunch, both in the 170s. FBG up from the previous report of 130-140. Predict increased sweetened beverages may be contributing. Diabetes Medications: None Pertinent Labs: HgA1c: 6.0% 08/2022 7.1% 08/2023 6.8% 03/2024 7.1%10/2024 Past Medical History: (Last Updated 09/30/23 @ 10:06 by Orestes Roa MD) Depression (~2020) Diabetes type 2, controlled (~08/2023) A1c 7.1 08/2023Essential hypertension History of kidney stones Impaired glucose tolerance A1c 6.4 July2Ovarian cyst (~1993) Nutrition Rx: Carbohydrates: Meal:30-45gSnack:15-30g Na: 2000-2300mg/day Nutrition Diagnosis: - Physical inactivity r/t stage of change and now Achilles pain aeb pt report - Excessive CHO intake r/t sweetened beverage choices aeb pt report and diet recall Intervention: This participant was very receptive. Provided appropriate educational handouts. Discussed the following topics: Impact of sugar beverages on BG and hgA1c goal of <7% per ADA PCOS s/s and diet and exercise recs Foot care recs, wearing slippers Lab review and recs Physical activity and limitations Encouraged further chat about PCOS with provider and/or nurse practioner Created SMART goals for patient self-care and success. Goals: Check BG 1-2 hours pc lunch on days off- met Limit pop to 1 per day - met Drink more water on days off- met Start walking- on hold Discontinue Aloe drink- new Wear slippers in the house- new Follow-up: KIMBERLEE BEDOYA follow-up in 4 weeks Perri Scott RDN, AURELIANO Certified Diabetes Care and Printed Circuit Board Layout Designer P: [phone] Thank you for this referral
== END ==
PROVIDERS: PCP Internal Medicine; Referring Provider Internal Medicine
DX: E11.9 Type 2 diabetes mellitus without complications (principal); E28.2 Polycystic ovarian syndrome; Z71.3 Dietary counseling and surveillance
CPT/HCPCS: 97803

== ENCOUNTER → 2025-01-12 09:43 | Outpatient (CLI) | payer OTHER, SELFPAY ==
--- NOTE | 2025-02-08 16:24 | DIAB.MNTFU ---
Follow-up Diabetes Medical Nutrition Therapy Assessment Name: Ronaldo Ambrosio Date: 01/12/25 Time: [id number] Dx: Type II Diabetes Ronaldo presents for Dm visit today. States she has reduced soda intake to q 2-3 days. States she recent had a friend pass. One she helped q week. States she feels she is in shock, but staying busy. She is looking forward to a sewing retreat, where she will have to bring her own snacks and 2 meals per day. Last year brought protein for snacks, ie beef jerky or cheese. Endorses when waking up earlier than usual, BG is higher. Not sleeping well per report. Reduced appetite when feeling sad/depressed. Currently eating 3 meals and 1 snack per day. Physical Activity: None. Achilles pain is a barrier. Plans to start PT this month. Anthropometrics: Ht: 66 Wt: none today 225.9# 10/2024 PCP office 229# 04/2024 PCP office 226# 10/2023 at PCP office Personal goal; 175 reported. Self-Monitoring Blood Glucose: FBG ranging from 140-233mg/dl. Postprandial dinner readings 140-161mg/dl. Diabetes Medications: None Pertinent Labs: HgA1c: 6.0% 08/2022 7.1% 08/2023 6.8% 03/2024 7.1%10/2024 Past Medical History: (Last Updated 09/30/23 @ 10:06 by Orestes Roa MD)Depression (~2020) Diabetes type 2, controlled (~08/2023) A1c 7.1 08/2023Essential hypertension History of kidney stones Impaired glucose tolerance A1c 6.4 Julyvarian cyst (~1993) Nutrition Rx: Carbohydrates: Meal:30-45gSnack:15-30g Na: 2000-2300mg/day Nutrition Diagnosis: - Excessive CHO intake r/t sweetened beverage choices aeb pt report and diet recall - in progress/improved - Nutrition and food related knowledge deficit r/t needing more ideas/info about foods to take on retreat aeb pt report- new Intervention: This participant was very receptive. Provided appropriate educational handouts. Discussed the following topics: Beverage choices Stress management Meal/snack ideas and planning Impact of sleep and stress on BG Created SMART goals for patient self-care and success. Goals: Switch to water overnight- met Check FBg and other BG and record with notes- met Add protein HS snack- met Consider CGM- continue Try meal/snack ideas for retreat- new Implement stress management techniques discussed- new Follow-up: KIMBERLEE BEDOYA follow-up in 4-6 weeks Perri Scott RDN, [facility] Certified Diabetes Care and Electric Frying Pan Repairer P: [phone] Thank you for this referral
== END ==
PROVIDERS: PCP Internal Medicine; Referring Provider Internal Medicine
DX: E11.9 Type 2 diabetes mellitus without complications (principal); Z71.3 Dietary counseling and surveillance
CPT/HCPCS: 97803

== ENCOUNTER → 2025-02-07 12:39 | Outpatient (CLI) | payer OTHER, SELFPAY ==
--- NOTE | 2025-02-07 12:40 | DI.US.S_ITS ---
PROCEDURE: US VENOUS INSUFFICIENCY LTD INDICATIONS: left leg swelling TECHNIQUE: Real time scanning was performed of the lower extremity venous system, with imaging documentation, as well as Color and pulse Doppler interrogation. COMPARISON: None. FINDINGS: LEFT LOWER EXTREMITY: The deep veins are normally compressible, and free of intraluminal thrombus. Color and pulse Doppler demonstrate normal intravascular flow. There is normal augmentation with distal compression maneuver. Greater saphenous vein (GSV): Normally 4 mm or less in diameter, with any reflux less than 0.5 seconds. Saphenofemoral junction (SFJ): 5 mm. No reflux. Proximal GSV: 4 mm. No reflux. Mid GSV: 4 mm. No reflux. Distal GSV: 5 mm. No reflux. Calf GSV: 3 mm, and no reflux. Anterior accessory GSV (AAGSV): Anatomic variant not present across anterior thigh. Small saphenous vein (SSV): Posterior calf, draining into popliteal vein. Posterior calf: 3 mm. No reflux. Vein of Giacomini (posterior thigh connection between GSV and SSV): Anatomic variant not seen. Auction Clerk veins: Not visualized. IMPRESSION: No evidence of reflux. Dictated by: Fannie Morfin M.D. on 02/10/2025 at 16:45 Approved by: Fannie Morfin M.D. on 02/10/2025 at 16:46
== END ==
PROVIDERS: PCP Internal Medicine; Referring Provider Podiatrist; Visit Provider Podiatrist
DX: R60.0 Localized edema (principal)
CPT/HCPCS: 93971

== ENCOUNTER → 2025-02-09 09:51 | Outpatient (CLI) | payer OTHER, SELFPAY ==
--- NOTE | 2025-02-09 11:26 | DIAB.MNTFU ---
Follow-up Diabetes Medical Nutrition Therapy Assessment Name: Ronaldo Ambrosio Date: 02/09/25 Time: 10-1030a Dx: Type II Diabetes Ronaldo presents for Dm visit today. Reports reduced soda intake continued during quilt retreat. Endorses using protein shakes and lower CHO meals/snacks during retreat, however also reports some desserts. Increased water intake. Reports highest readings she has had during retreat, HS readings in the 200-380mg/dl. Has not been checking BG lately. Reports increased stress with the loss of her friend and more recently her wanting a divorce. States she is trying to avoid binge eating. Stress is high, understandably. States in the past she would binge eat. This RD thinks she may benefit from Metformin given reported elevated numbers. States she would like to check BG for another month before considering this recommendation. States she would like more ideas on how to bring elevated BG down. More interested in supplements, ie cinnamon. Physical Activity: None. Achilles pain is a barrier. In physical therapy. Anthropometrics: Ht: 66 Wt: none today 225.9# 10/2024 PCP office 229# 04/2024 PCP office 226# 10/2023 at PCP office Personal goal; 175 reported. Self-Monitoring Blood Glucose: None lately. Reports elevated HS readings in the 200-380mg/dl during sewing retreat. Diabetes Medications: None Pertinent Labs: HgA1c: 6.0% 08/2022 7.1% 08/2023 6.8% 03/2024 7.1%10/2024 Past Medical History: (Last Updated 09/30/23 @ 10:06 by Orestes Roa MD)Depression (~2020) Diabetes type 2, controlled (~08/2023) A1c 7.1 08/2023Essential hypertension History of kidney stones Impaired glucose tolerance A1c 6.4 July2Ovarian cyst (~1993) Nutrition Rx: Carbohydrates: Meal:30-45gSnack:15-30g Na: 2000-2300mg/day Nutrition Diagnosis: - Excessive CHO intake r/t sweetened beverage choices aeb pt report and diet recall - in progress/improved - Self monitoring deficit r/t not currently checking BG due to stress and elevated BG during retreat aeb pt report- new Intervention: This participant was very receptive. Provided appropriate educational handouts. Discussed the following topics: Beverage choices Stress management Low CHO and hydration with higher BG Metformin impact on health/BG, SE DM management and supplements, lack of research to support and potential risks Support network Created SMART goals for patient self-care and success. Goals: Try meal/snack ideas for retreat- met Implement stress management techniques discussed- continue Check BG 1-2x per day- new Follow-up: KIMBERLEE BEDOYA follow-up in 4 weeks Perri Scott RDN, [facility] Certified Diabetes Care and Food Service Tray Attendant P: [phone] Thank you for this referral
== END ==
LOC: DIET 09:52
PROVIDERS: PCP Internal Medicine; Referring Provider Internal Medicine
DX: E11.9 Type 2 diabetes mellitus without complications (principal); Z71.3 Dietary counseling and surveillance
CPT/HCPCS: 97803

== ENCOUNTER → 2025-03-09 10:47 | Outpatient (CLI) | payer OTHER, SELFPAY ==
--- NOTE | 2025-03-31 17:18 | DIAB.MNTFU ---
Follow-up Diabetes Medical Nutrition Therapy Assessment Name: Ronaldo Ambrosio Date: 03/09/25 Time: a Dx: Type II Diabetes Ronaldo presents for Dm visit today. Drinking protein shakes. States her divorse is on hold Working on self care: using libardo for documenting self care behaviors, records emotions, has goals of water intake, getting out of bed, choose healthy snack, gratitude, etc. Reduced soda intake to 3 per month. Increased water. Kidney stone x 6 months ago. States lemonade helps reduce risk. Has vit c in MVN, dose 135mg. Physical Activity: None. Achilles pain is a barrier. In physical therapy. Anthropometrics: Ht: 66 Wt: none today 225.9# 10/2024 PCP office 229# 04/2024 PCP office 226# 10/2023 at PCP office Personal goal; 175 reported. Self-Monitoring Blood Glucose: Checking FBG and HS. Reports 140-150mg/dl. None for review. Diabetes Medications: None Pertinent Labs: HgA1c: 6.0% 08/2022 7.1% 08/2023 6.8% 03/2024 7.1%10/2024 Past Medical History: (Last Updated 09/30/23 @ 10:06 by Orestes Roa MD)Depression (~2020) Diabetes type 2, controlled (~08/2023) A1c 7.1 08/2023Essential hypertension History of kidney stones Impaired glucose tolerance A1c 6.4 Julyvarian cyst (~1993) Nutrition Rx: Carbohydrates: Meal:30-45gSnack:15-30g Na: 2000-2300mg/day Nutrition Diagnosis: - Excessive CHO intake r/t sweetened beverage choices aeb pt report and diet recall - in progress/improved - Self monitoring deficit r/t not currently checking BG due to stress and elevated BG during retreat aeb pt report- improved Intervention: This participant was very receptive. Provided appropriate educational handouts. Discussed the following topics: Beverage choices Stress management Support network Nutrition supplements Different kidney stones Created SMART goals for patient self-care and success. Goals: Implement stress management techniques discussed- met Check BG 1-2x per day- met Get SF lemonade- new Write down supplements you are taking and dosing- new Review nephrology notes for kidney stone type- new Follow-up: RDN CDCES follow-up in 4 weeks Perri Scott RDN, [facility] Certified Diabetes Care and Director Of Patient Financial Services P: [phone] Thank you for this referral
== END ==
PROVIDERS: PCP Internal Medicine; Referring Provider Internal Medicine
DX: E11.9 Type 2 diabetes mellitus without complications (principal); Z71.3 Dietary counseling and surveillance
CPT/HCPCS: 97803

== ENCOUNTER → 2025-04-27 11:13 | Outpatient (CLI) | payer OTHER, SELFPAY ==
[2025-04-27 11:55] LABS: Hemoglobin A1C% w Est Avg Glu 7.6 % (4.0-6.0)
[2025-04-27 12:05] LABS: Alanine Aminotransferase 35 IU/L (<35); Albumin 4.4 g/dL (3.5-5.0); Albumin Globulin Ratio 1.3 (1.0-2.8); Alkaline Phosphatase 70 U/L (38-126); Blood Urea Nitrogen 12 mg/dL (7-17); Calcium 9.2 mg/dL (8.4-10.2); Carbon Dioxide 26 mmol/L (22-32); Chloride 104 mmol/L (98-107); Cholesterol 152 mg/dL (140-199); Estimated Glomerular Filt Rate > 60 mL/min (>60); Globulin 3.3 g/dL (1.7-4.1); Glucose 211 mg/dL (70-99); HDL Cholesterol 47 mg/dL (40-60); HEMOLYSIS < 15 (0-50); Potassium 4.0 mmol/L (3.4-5.1); Sodium 139 mmol/L (137-145); Total Protein 7.7 g/dL (6.3-8.2); Triglycerides 124 mg/dL (35-150)
[2025-04-27 15:26] LABS: Microalbumi Creatinin Ratio Ur 20.0 ug/mg CR (<30)
== END ==
PROVIDERS: PCP Internal Medicine; Referring Provider Internal Medicine; Visit Provider Internal Medicine
DX: I10 Essential (primary) hypertension (principal); E78.2 Mixed hyperlipidemia; E11.9 Type 2 diabetes mellitus without complications
CPT/HCPCS: 36415; 80053; 80061; 82043; 82570; 83036

== ENCOUNTER → 2025-05-24 09:48 | Outpatient (CLI) | payer OTHER, SELFPAY ==
--- NOTE | 2025-05-24 16:54 | DIAB.MNTFU ---
Follow-up Diabetes Medical Nutrition Therapy Assessment Name: Ronaldo Ambrosio Date: 05/24/25 Time: 1010-11a Dx: Type II Diabetes Ronaldo presents for Dm visit today. HgA1c up from previous labs, however states she does not think her lifestyle has changed much. Last PCP visit discussed potential for oral Dm meds, which this RD thinks may be beneficial. Reports stress, anxiety, depression. States she thinks stress has impacted BG. Cut out her donut on Sundays as a result. Continues with reduced soda intake to 1-2x per week 8oz portions. Taking most of her nutrition supplements in gummy form. Review of supplements indicates about 30g CHO, which she is taking with dinner that also has CHO. No longer drinking lemonade. Unsure of kidney stone type. Vitamin c seems to be 550mg from all supplements. Taking Zinc, Calcium, Potassium, Mg citrate, D3, MVI, vitamin c, B12. Not currently interested in reducing supplement intake. Using DM cookbook recipes, daughter cooks dinner. Diet Recall: 830-930a: protein shake OR Haitian muffin with cheese 130-2p: tortilla with meat/cheese or leftovers or eating out sn: nothing or banana chips with cashews x handful 9-10p: veggie based pasta with protein and veggies water soda 1-2x per week tea slightly sweetened Physical Activity: None. Achilles pain is a barrier. In physical therapy. Anthropometrics: Ht: 66 Wt: 225.8# 04/2025 225.9# 10/2024 PCP office 229# 04/2024 PCP office 226# 10/2023 at PCP office Personal goal; 175 reported. Self-Monitoring Blood Glucose: None currently. Diabetes Medications: None Pertinent Labs: HgA1c: 6.0% 08/2022 7.1% 08/2023 6.8% 03/2024 7.1%10/2024 Past Medical History: (Last Updated 09/30/23 @ 10:06 by Orestes Roa MD)Depression (~2020) Diabetes type 2, controlled (~08/2023) A1c 7.1 08/2023Essential hypertension History of kidney stones Impaired glucose tolerance A1c 6.4 Julyvarian cyst (~1993) Nutrition Rx: Carbohydrates: Meal:30-45gSnack:15-30g Na: 2000-2300mg/day Nutrition Diagnosis: - Excessive CHO intake r/t sweetened beverage choices aeb pt report and diet recall - in progress/improved - Physical inactivity r/t stage of change contemplative aeb pt report- new Intervention: This participant was very receptive. Provided appropriate educational handouts. Discussed the following topics: Beverage choices Stress management Nutrition supplements CHO content and vitamin c Encouraged Bg checks Physical activity DM oral medications Created SMART goals for patient self-care and success. Goals: Get SF lemonade- d/c since not drinking lemonade Write down supplements you are taking and dosing- met Review nephrology notes for kidney stone type- d/c Start walks with daughter- new take supplements away from other CHO- new Start BG checks- new Follow-up: KIMBERLEE BEDOYA follow-up in 4 weeks Perri Scott RDN, [facility] Certified Diabetes Care and Wind Project Manager P: [phone] Thank you for this referral
== END ==
LOC: DIET 09:48
PROVIDERS: PCP Internal Medicine; Referring Provider Internal Medicine
DX: E11.9 Type 2 diabetes mellitus without complications (principal); Z71.3 Dietary counseling and surveillance
CPT/HCPCS: 97803